=== PATIENT | female | born 1975 | race American Indian/Alaskan Native ===

== ENCOUNTER 2017-02-19 12:34 | Emergency (ER) | payer MEDICAID, OTHER ==
[2017-02-19 12:41] VITALS: BMI 19.3
[2017-02-19 13:02] VITALS: TEMP 97.9; O2SAT 100
--- NOTE | 2017-02-19 13:13 | ED PDOC ---
Arrival/HPI - General Historian: Patient - History of Present Illness Time/Duration: > week Symptom Onset: Sudden Symptom Course: Intermittent Quality: Pressure Severity Level: Moderate - General Chief Complaint: Chest Pain Time Seen by Provider: 02/19/17 12:38 - History of Present Illness Narrative History of Present Illness (Text): 02/19/17 13:05 41F w/PMH sig for iron deficiency anemia evaluated for Left sided neck/trunk pain x 2 weeks. Pt reports intermittent pain that originates in posterior neck , radiates down to left chest wall and Left upper extremity. Pain is "pressure" , moderate severity. No inciting factors identified. Alleviated by Tylenol. No aggravating factors identified. Admits to recent stress, weakness, occasional SOB, occasional diaphoresis- unrelated to episodes of pain. Denies N & V, F & C, ab pain, recent illness, changes in bowel or bladder habits, other complaints. PMH: Iron deficiency anemia PSH: x 2 All: NKDA SH: Social ETOH use, denies tobacco or illicit drug use PMD: Just switched to Dr. Turner-hasn't been seen yet. Prior PMD: Maribeth Garrison (Natalie Oates) Past Medical History - Provider Review Nursing Documentation Reviewed: Yes - Infectious Disease Hx of Infectious Diseases: None - Hematological/Oncological Hx Anemia: Yes - Psychiatric Hx Substance Use: No - Surgical History Hx Section: Yes (x2) - Anesthesia Hx Anesthesia: Yes Hx Anesthesia Reactions: No Hx Malignant Hyperthermia: No Family/Social History - Physician Review Nursing Documentation Reviewed: Yes Family/Social History: No Known Family HX Smoking Status: Never Smoked Hx Alcohol Use: Yes Frequency of alcohol use: Socially Hx Substance Use: No Allergies/Home Meds Allergies/Adverse Reactions: Allergies No Known Allergies Allergy (Verified 10/27/12 10:27) Review of Systems - Physician Review All systems were reviewed & negative as marked: Yes - Review of Systems Constitutional: Fatigue. absent: Fevers ENT: Normal. absent: Sore Throat Respiratory: SOB. absent: Normal Cardiovascular: Other (chest wall pain). absent: Normal, Palpitations, [place], Syncope Gastrointestinal: Normal. absent: Abdominal Pain, Stool Changes, Constipation, Diarrhea, Nausea, Vomiting, Hematochezia, Hematemesis Genitourinary Female: Normal. absent: Dysuria Musculoskeletal: Neck Pain. absent: Normal Skin: Normal. absent: Rash Neurological: Normal. absent: Headache, Dizziness Endocrine: Diaphoresis. absent: Normal Physical Exam Vital Signs Reviewed: Yes Temperature: Afebrile Blood Pressure: Normal Pulse: Regular Respiratory Rate: Normal Appearance: Positive for: Non-Toxic, Comfortable Pain Distress: None Mental Status: Positive for: Alert and Oriented X 3 - Systems Exam Head: Present: Atraumatic, Normocephalic Extroacular Muscles: Present: EOMI Conjunctiva: Present: Normal Mouth: Present: Moist Mucous Membranes Nose (External): Present: Atraumatic Neck: Present: Paraspinal Tenderness. No: Normal Range of Motion, MIDLINE TENDERNESS Respiratory/Chest: Present: Clear to Auscultation, Good Air Exchange, Tender to Palpation (over left chest wall). No: Respiratory Distress, Accessory Muscle Use, Wheezes Cardiovascular: Present: Regular Rate and Rhythm, Normal S1, S2. No: Murmurs Abdomen: Present: Normal Bowel Sounds. No: Tenderness, Distention, Peritoneal Signs Back: Present: Paraspinal Tenderness (upper back/neck). No: CVA Tenderness, Midline Tenderness Upper Extremity: Present: Normal Inspection, Normal ROM, NORMAL PULSES, Neurovascularly Intact. No: Cyanosis, Edema, Deformity Lower Extremity: Present: Normal Inspection. No: Edema, NORMAL PULSES, Tenderness Neurological: Present: GCS=15, CN II-XII Intact, Speech Normal, Motor Func Grossly Intact, Normal Sensory Function Skin: Present: Warm, Dry, Normal Color. No: Rashes Psychiatric: Present: Alert, Oriented x 3, Normal Insight, Normal Concentration Vital Signs Temp Pulse Pulse Resp BP Pulse Ox 02/19/17 14:07 69 02/19/17 12:35 97.9 F 77 18 127/70 100 Medical Decision Making ED Course and Treatment: Patient Seen With Resident: In agreement with resident note which contains more details about the patient. Patient was seen and evaluated with resident. Came up with plan and treatment together. (Emmie Gordon) 02/19/17 13:16 Pt seen/evaluated. Case DW ED attending- will order cardiac work up, musculoskeletal medications and re-evaluate. 02/19/17 15:45 Pt reports pain resolved with medication. Social work saw pt. Awaiting CXR, then plan to d/c pt home. (Natalie Oates) - Lab Interpretations Lab Results: 02/19/17 13:28 02/19/17 13:28 Lab Results 02/19/17 13:28: Sodium 143, Potassium 4.1, Chloride 106, Carbon Dioxide 29, Anion Gap 12, BUN 12, Creatinine 0.9, Est GFR ( Amer) > 60, Est GFR (Non- Af Amer) > 60, Random Glucose 87, Calcium 9.3, Total Bilirubin 1.3, AST 28, ALT 35, Alkaline Phosphatase 57, Lactate Dehydrogenase 384, Total Creatine Kinase 141, Troponin I < 0.01, Total Protein 7.1, Albumin 4.2, Globulin 2.9, Albumin/ Globulin Ratio 1.4 02/19/17 13:28: WBC 4.1 L, RBC 5.22, Hgb 9.3 L, Hct 31.4 L, MCV 60.2 L, MCH 17.8 L, MCHC 29.6 L, RDW 17.4 H, Plt Count 287, Gran % 40.9 L, Lymph % (Auto) 46.6 H, [place] % (Auto) 7.6 H, Eos % (Auto) 3.7, Baso % (Auto) 1.2, Gran # 1.66, Lymph # 1.9, [place] # 0.3, Eos # 0.2, Baso # 0.05 - RAD Interpretation Radiology Orders: 02/19/17 13:04 CHEST PORTABLE [RAD] Stat - Medication Orders Current Medication Orders: Discontinued Medications Cyclobenzaprine HCl (Flexeril) 10 mg PO STAT STA Stop: 02/19/17 13:05 Last Admin: 02/19/17 14:19 Dose: 10 mg Ketorolac Tromethamine (Toradol) 30 mg IVP STAT STA Stop: 02/19/17 13:05 Last Admin: 02/19/17 14:19 Dose: 30 mg MAR Pain Assessment Document 02/19/17 14:19 MR (Rec: 02/19/17 14:20 MR [id number]) Pain Reassessment Is this a pain reassessment? No Presence of Pain Presence of Pain Yes Pain Scale Used Pain Scale Used Numeric Location Left, Right or Bilateral Left Upper or Lower Lower Pain Location Body Site Chest Description Description Sharp Intensity of Pain at present 8 Pain Behavior Facial Grimacing Alleviating Factors/Management Medication Techniques Position Change IVP Administration Document 02/19/17 14:19 MR (Rec: 02/19/17 14:20 MR [id number]) Charges for Administration # of IVP Administrations 1 Disposition/Present on Arrival - Present on Arrival Any Indicators Present on Arrival: No History of DVT/PE: No History of Uncontrolled Diabetes: No Urinary Catheter: No History of Decub. Ulcer: No History Surgical Site Infection Following: None - Disposition Have Diagnosis and Disposition been Completed?: Yes Disposition Time: 16:14 Patient Plan: Discharge - Disposition Diagnosis: Musculoskeletal neck pain Disposition: HOME/ ROUTINE Patient Problems: Current Active Problems Problem Status Onset Musculoskeletal neck pain Acute Condition: STABLE Discharge Instructions (ExitCare): Acetaminophen/Muscle Relaxer (By mouth), Muscle Spasm (ED), Muscle Cramp (ED) Additional Instructions: Please follow up with Dr. Turner. You may use a heating pad on your neck/back to help with muscle tension. Please take all prescriptions as written. Prescriptions: Cyclobenzaprine [Cyclobenzaprine HCl] 10 mg PO Q8H PRN #15 tab PRN Reason: Pain, Moderate (4-7) Ibuprofen [Motrin] 600 mg PO Q6H PRN #28 tab PRN Reason: Pain, Moderate (4-7) Referrals: Mark Turner MD [Family Provider] - Follow up with primary Forms: [facility] (Kinyarwanda), WORK NOTE
[2017-02-19 13:45] LABS: ALB/GLOB RATIO 1.4 (1.1-1.8); ALKALINE PHOSPHATASE 57 U/L (38-126); ALT/SGPT 35 U/L (7-56); AST/SGOT 28 U/L (14-36); BILIRUBIN,TOTAL 1.3 mg/dL (0.2-1.3); BLOOD UREA NITROGEN 12 mg/dL (7-21); CALCIUM 9.3 mg/dL (8.4-10.5); CARBON DIOXIDE 29 mmol/L (21-33); CHLORIDE 106 mmol/L (98-107); GFR AFRICAN-AMERICAN > 60; GLUCOSE,RANDOM 87 mg/dL (70-110); POTASSIUM 4.1 mmol/L (3.6-5.0); SODIUM 143 mmol/L (132-148); TOTAL PROTEIN 7.1 g/dL (5.8-8.3)
[2017-02-19 13:52] LABS: BASO # 0.05 K/mm3 (0.0-2.0); BASO % 1.2 % (0.0-3.0); EOS # 0.2 (0.0-0.7); EOS % 3.7 % (1.5-5.0); GRAN # 1.66 (1.4-6.5); GRAN % 40.9 % (50.0-68.0); HEMATOCRIT 31.4 % (36.0-48.0); LYMPH # 1.9 (1.2-3.4); LYMPH % 46.6 % (22.0-35.0); MEAN CELL VOLUME 60.2 fl (80.0-105.0); MEAN CORPUSCULAR HEMOGLOBIN 17.8 pg (25.0-35.0); MEAN CORPUSCULAR HGB CONC 29.6 g/dl (31.0-37.0); MONO # 0.3 (0.1-0.6); MONO % 7.6 % (1.0-6.0); PLATELET COUNT 287 10^3/uL (120.0-450.0); RED CELL DISTRIBUTION WIDTH 17.4 % (11.5-14.5); WHITE BLOOD COUNT 4.1 10^3/ul (4.5-11.0)
[2017-02-19 13:56] LABS: TROPONIN I < 0.01 ng/mL
--- NOTE | 2017-02-19 15:52 | RAD ---
HISTORY: chest pain COMPARISON: 10/31/2012 FINDINGS: LUNGS: No active pulmonary disease. PLEURA: No significant pleural effusion identified, no pneumothorax apparent. CARDIOVASCULAR: Normal. OSSEOUS STRUCTURES: No significant abnormalities. VISUALIZED UPPER ABDOMEN: Normal. OTHER FINDINGS: None. IMPRESSION: No active disease.
[2017-02-19 17:17] VITALS: BP 123/78; PULSE 70; RESP 17
--- NOTE | 2017-02-19 22:45 | CARD ---
APPROVED REPORT EKG Measurement Heart [id number] <Conclusion> Normal sinus rhythm Minimal voltage criteria for LVH, may be normal variant Borderline ECG
== END 2017-02-19 16:59 | disposition home or self-care (01) ==
LOC: ED 12:34
DX: M54.2 Cervicalgia (principal); D50.9 Iron deficiency anemia, unspecified
CPT/HCPCS: 71010; 80053; 82550; 83615; 84484; 85025; 93005; 96374; 99284; J1885